=== PATIENT | female | born 1980 | race Two or more races ===

== ENCOUNTER 2024-12-01 03:46 | Emergency (ER) | payer SELFPAY ==
[2024-12-01] MEDS ORDERED: 50% Dextrose in Water 50 ML Syringe IVPUSH PRN (03:58)
[2024-12-01] MEDS: Insulin Glarg,Human.Rec.Analog 100 Unit/ML 10 ML Vial SUBCUT STA (04:23)
== END 2024-12-01 04:31 | disposition home or self-care (01) ==
LOC: VM.ED 03:46
DX: E11.65 Type 2 diabetes mellitus with hyperglycemia (principal); Z79.4 Long term (current) use of insulin
CPT/HCPCS: 99284; J1815